=== PATIENT | female | born 1935 | race Caucasian/White ===

== ENCOUNTER 2017-04-23 15:17 | Inpatient (IN) | payer MEDICARE ==
[~2017-04-23] VITALS: Ht 160 cm; Wt 38.1 kg
[~2017-04-23 15:17] MED LIST: PRAV20 PO; TRAACE PO; Vitamin D 3 PO
[2017-04-23 15:50] LABS: Source, Urine Clean Catch
[2017-04-23] MEDS ORDERED: LATANOPROST2.5 ML OP (15:51)
[2017-04-23 15:55] LABS: Bilirubin, Urine Neg (Neg); Blood, Urine 1+ (Neg); Glucose Qualitative, Urine Neg (Neg); Ketones, Urine 2+ (Neg); Leukocyte Esterase, Urine 1+ (Neg); Nitrite, Urine Neg (Neg); Protein, Urine 3+ (Neg); Specific Gravity, Urine 1.015 (1.003-1.022); Urobilinogen, Urine NORM (Normal)
[2017-04-23 16:02] LABS: Appearance, Urine Hazy (Clear); Color, Urine Yellow (P-Yellow); Red Blood Cells, Urine 0-2 /hpf (0-2); Squamous Epithelial Cells Few /hpf (Few)
[2017-04-23 16:03] LABS: Amorphous Mod (0-Heavy); Bacteria Mod /hpf
[2017-04-23 16:17] LABS: BASOPHILS ABSOLUTE AUTO 0.03 K/mm3 (0.00-0.23); BASOPHILS PERCENT AUTO 0 % (0-2); EOSINOPHILS ABSOLUTE AUTO 0.03 K/mm3 (0.00-0.68); EOSINOPHILS PERCENT AUTO 0 % (0-6); Hematocrit 44.1 % (33.0-51.0); Hemoglobin 13.9 g/dL (11.5-16.0); IMMATURE GRAN ABSOLUTE AUTO 0.05 K/mm3 (0.00-0.10); IMMATURE GRAN PERCENT AUTO 0 % (0-1); LYMPHOCYTES ABSOLUTE AUTO 0.94 K/mm3 (0.84-5.20); LYMPHOCYTES PERCENT AUTO 5 % (21-46); MONOCYTES ABSOLUTE AUTO 0.43 K/mm3 (0.16-1.47); MONOCYTES PERCENT AUTO 3 % (4-13); Mean Corpuscular HGB 31.6 pg (26.0-34.0); Mean Corpuscular HGB Conc 31.5 g/dL (31.5-36.5); Mean Corpuscular Volume 100 fL (80-100); Mean Platelet Volume 10.8 fL (9.1-12.4); NEUTROPHILS ABSOLUTE AUTO 15.87 K/mm3 (1.96-9.15); NEUTROPHILS PERCENT AUTO 91 % (41-73); Platelet Count 275 K/mm3 (150-400); RDW Coefficient Variation 13.8 % (11.7-14.2); RDW Standard Deviation 50.7 fL (35.1-46.3); White Blood Cell Count 17.35 K/mm3 (4.00-11.30)
[2017-04-23 16:36] LABS: Alanine Aminotransfer (ALT/SGP 16 U/L (12-78); Albumin, Blood 3.4 g/dL (3.4-5.0); Albumin/Globulin Ratio 0.8 (0.8-1.8); Alk Phos 79 U/L (50-136); Anion Gap 7 mmol/L (6-16); Aspartate Aminotrans (AST/SGOT 21 U/L (12-37); Bilirubin, Total 0.4 mg/dL (0.1-1.0); Blood Urea Nitrogen 9 mg/dL (8-24); Bun/Creatinine Ratio 19.4 (12.0-20.0); CO2, Blood 30 mmol/L (21-32); Calcium, Blood 9.1 mg/dL (8.5-10.1); Chloride, Blood 104 mmol/L (98-108); Creatinine, Blood 0.46 mg/dL (0.40-1.00); Glomerular Filtration Rate >60 (60-); Glucose, Blood 134 mg/dL (70-99); Potassium, Blood 3.5 mmol/L (3.5-5.5); Sodium, Blood 141 mmol/L (136-145); Total Protein, Blood 7.4 g/dL (6.4-8.2)
[2017-04-23 19:08] LABS: Magnesium, Blood 1.9 mg/dL (1.6-2.4)
--- NOTE | 2017-04-23 19:25 | NUR ---
SHIFT SUMMARY PT ARRIVED TO ROOM AT 1846 VIA BED. PT TUCKED IN AND MADE COMFORTABLE. REPORT GIVEN TO EXPEDITER CLERK NURSE WHO WILL ASSUME CARE AT THIS TIME
--- NOTE | 2017-04-24 04:13 | NUR ---
SHIFT SUMMARY PATIENT IS A NEW ADMIT FROM THE ED. SHE IS ALERT AND ORIENTED WITH MILD CONFUSION. SHE DOES NOT KNOW THE YEAR AND WILL REPEAT HERSELF IN CONVERSATION. PIV AND TELE INTACT. TELE REPORTS SR 84 WITH PVC. NS KCL 20 MEQ RUNNING AT 100 mL/HR. PATIENT DENIES PAIN AND N/V. PATIENT REPORTS SHE PICKS AT HER SKIN ON ARMS AND BACK FROM ANXIETY. RED SCABS PRESENT. MEPILEX PUT ON COCCYX FOR PREVENTION. SHE IS A ONE ASSIST TO THE BSC WITH FWW. CALL COLLINS IN REACH. BED IN LOWEST POSITION. WILL CONTINUE TO MONITOR UNTIL DAY SHIFT NURSE ASSUMES CARE.
[2017-04-24 05:19] LABS: BASOPHILS ABSOLUTE AUTO 0.02 K/mm3 (0.00-0.23); BASOPHILS PERCENT AUTO 0 % (0-2); EOSINOPHILS ABSOLUTE AUTO 0.19 K/mm3 (0.00-0.68); EOSINOPHILS PERCENT AUTO 2 % (0-6); Hematocrit 39.2 % (33.0-51.0); Hemoglobin 12.2 g/dL (11.5-16.0); IMMATURE GRAN ABSOLUTE AUTO 0.02 K/mm3 (0.00-0.10); IMMATURE GRAN PERCENT AUTO 0 % (0-1); LYMPHOCYTES ABSOLUTE AUTO 2.58 K/mm3 (0.84-5.20); LYMPHOCYTES PERCENT AUTO 25 % (21-46); MONOCYTES ABSOLUTE AUTO 0.85 K/mm3 (0.16-1.47); MONOCYTES PERCENT AUTO 8 % (4-13); Mean Corpuscular HGB 31.2 pg (26.0-34.0); Mean Corpuscular HGB Conc 31.1 g/dL (31.5-36.5); Mean Corpuscular Volume 100 fL (80-100); Mean Platelet Volume 11.2 fL (9.1-12.4); NEUTROPHILS ABSOLUTE AUTO 6.87 K/mm3 (1.96-9.15); NEUTROPHILS PERCENT AUTO 65 % (41-73); Platelet Count 280 K/mm3 (150-400); RDW Standard Deviation 50.9 fL (35.1-46.3); Red Blood Cell Count 3.91 M/mm3 (3.80-5.20); White Blood Cell Count 10.53 K/mm3 (4.00-11.30)
[2017-04-24 05:44] LABS: Alanine Aminotransfer (ALT/SGP 12 U/L (12-78); Albumin, Blood 2.8 g/dL (3.4-5.0); Albumin/Globulin Ratio 0.8 (0.8-1.8); Alk Phos 63 U/L (50-136); Anion Gap 4 mmol/L (6-16); Aspartate Aminotrans (AST/SGOT 18 U/L (12-37); Bilirubin, Total 0.5 mg/dL (0.1-1.0); Blood Urea Nitrogen 11 mg/dL (8-24); Bun/Creatinine Ratio 20.4 (12.0-20.0); CO2, Blood 29 mmol/L (21-32); Calcium, Blood 8.6 mg/dL (8.5-10.1); Chloride, Blood 110 mmol/L (98-108); Creatinine, Blood 0.54 mg/dL (0.40-1.00); Globulin, Blood 3.6 g/dL (2.2-4.0); Glomerular Filtration Rate >60 (60-); Glucose, Blood 82 mg/dL (70-99); Potassium, Blood 3.9 mmol/L (3.5-5.5); Sodium, Blood 143 mmol/L (136-145); Total Protein, Blood 6.4 g/dL (6.4-8.2)
--- NOTE | 2017-04-24 17:38 | NUR ---
SHIFT SUMMARY PT AXO TO SELF AND FAMILY. PT PLEASANT AND COOPERATIVE. PT STATES THAT SHE IS DOESNT REMEMBER WHY SHE IS HERE AND HOW SHE GOT HERE. NURSE REORIENTED PRN. PT REMAINS 1 ASSIST TO BSC. PT'S IV IS PATENT AND LOCKED AT THIS TIME. MEPILEX ON COCCYX FOR PREVENTION. PT'S SON AND CAREGIVER CALLED MULTIPLE TIMES THROUGHOUT SHIFT FOR UPDATES. PT STATED THAT IT WAS OKAY FOR NURSE TO TALK WITH EACH. PT ALSO STATED THAT SHE NEEDS TO EAT MORE IN THE FUTURE AND ADMITS TO FAILING TO EAT PROPERLY. PT SITTING UP IN BED EATING DINNER AT THIS TIME, CALL LIGHT WITHIN REACH.
--- NOTE | 2017-04-25 04:34 | NUR ---
SHIFT SUMMARY PATIENT HAD NO ACUTE CHANGES OBSERVED DURING THE SHIFT. PATIENT IS ALERT AND ORIENTED TO SELF AND FAMILY AND PLACE, DOES NOT KNOW YEAR AND WILL REPEAT HER SENTENCES. PIV AND TELE REMAIN INTACT. FIELD HEALTH OFFICER REPORTS SINUS 69 W/PAV. PATIENT IS A ONE ASSIST TO THE BSC. PIV IS PATENT AND LOCKED. MEPILEX ON COCCYX FOR PREVENTION. PATIENT DENIES PAIN AND N/V. PATIENT REPORTS PICKING AT HER SCABS AND SKIN FROM ANXIETY. PATIENT COOPERATIVE WITH CARE. CALL COLLINS IS IN REACH. BED IN LOWEST POSITION. WILL CONTINUE TO MONITOR UNTIL DAY SHIFT NURSE [facility].
[2017-04-25 04:55] LABS: BASOPHILS ABSOLUTE AUTO 0.03 K/mm3 (0.00-0.23); BASOPHILS PERCENT AUTO 0 % (0-2); EOSINOPHILS ABSOLUTE AUTO 0.58 K/mm3 (0.00-0.68); EOSINOPHILS PERCENT AUTO 6 % (0-6); Hematocrit 37.5 % (33.0-51.0); IMMATURE GRAN ABSOLUTE AUTO 0.01 K/mm3 (0.00-0.10); IMMATURE GRAN PERCENT AUTO 0 % (0-1); LYMPHOCYTES ABSOLUTE AUTO 2.23 K/mm3 (0.84-5.20); LYMPHOCYTES PERCENT AUTO 23 % (21-46); MONOCYTES ABSOLUTE AUTO 0.77 K/mm3 (0.16-1.47); MONOCYTES PERCENT AUTO 8 % (4-13); Mean Corpuscular HGB 31.1 pg (26.0-34.0); Mean Platelet Volume 10.3 fL (9.1-12.4); NEUTROPHILS ABSOLUTE AUTO 6.27 K/mm3 (1.96-9.15); NEUTROPHILS PERCENT AUTO 63 % (41-73); Platelet Count 250 K/mm3 (150-400); RDW Coefficient Variation 13.8 % (11.7-14.2); RDW Standard Deviation 48.9 fL (35.1-46.3); Red Blood Cell Count 3.86 M/mm3 (3.80-5.20); White Blood Cell Count 9.89 K/mm3 (4.00-11.30)
[2017-04-25 04:57] LABS: Mean Corpuscular Volume 97 fL (80-100)
[2017-04-25 05:15] LABS: Anion Gap 6 mmol/L (6-16); Blood Urea Nitrogen 6 mg/dL (8-24); Bun/Creatinine Ratio 14.5 (12.0-20.0); CO2, Blood 29 mmol/L (21-32); Calcium, Blood 8.3 mg/dL (8.5-10.1); Chloride, Blood 110 mmol/L (98-108); Creatinine, Blood 0.41 mg/dL (0.40-1.00); Glomerular Filtration Rate >60 (60-); Glucose, Blood 91 mg/dL (70-99); Potassium, Blood 3.3 mmol/L (3.5-5.5); Sodium, Blood 145 mmol/L (136-145)
--- NOTE | 2017-04-25 06:33 | NUR ---
CHEST X-RAY PATIENT TRANSPORTED FOR A 2 VIEW CHEST X-RAY IN BED. OUT OF ROOM.
--- NOTE | 2017-04-25 15:26 | NUR ---
PT COMPLAINS OF RIGHT MID THIGH PAIN. STATES SHE HAS THIS PAIN ON OCCASSION AND THAT HEAT AND REST HELPS. SHE ALSO REQUESTS A PAIN PILL, NO ORDER FOR PAIN MEDICINE. PATIENT WAS UNABLE TO KEEP DOWN HER LUNCH, SHE ATE CHICKEN NOODLE SOUP, SOME RICE AND JELLO. CALL PLACED TO HOSPITLAIST, PER INSTRUCTION HER DIET WAS CHANGED TO CLEAR LIQUID, AND ORDERS PLACED FOR THE FOLLOWING: ACETAMINOPHNE 325-650MG PO Q6H AND K PAD
--- NOTE | 2017-04-25 15:42 | NUR ---
Per staff request, I met with Mrs. Gregg to provide emotional and spiritual support. Staff member relayed to me that Darling appears sad and depressed. At the time of my visit, Mr. Gregg smiled easily and took delight in telling me about her three sons. In fact, when I attempted to steer conversation to here and now, she led the conversation back to the time in her life when her boys were small. She appears pleasantly confused, although she could tell me that her spouse is bedbound at home and her desire for more help caring for him. She did not linger long though on that topic. I provided gentle spiritual direction, affirmation of God's love and attention, and prayer. We had an easy rapport. I will remain available.
--- NOTE | 2017-04-25 17:55 | NUR ---
SHIFT SUMMARY NO ACUTE CHANGES THIS SHIFT. PATIENT REMAINS UNABLE TO TOLERATE SOLID FOODS. EMESIS X1. C/O PAIN, RELIEVED WITH HEAT THERAPY AND ACETAMINOPHEN. SHE IS A ONE PERSON STADBY/1 PERSON ASSIST TO THE CHAIR AND BEDSIDE COMMODE. SHE IS ABLE TO MAKE HER NEEDS KNOWN AND USES THE CALL LIGHT APPROPRIATELY, IF SHE CAN FIND IT. SHE IS ORIENTED TO SELF AND PLACE, ALSO FOLLOWS COMMANDS. REPORTS "NEVER FEELING SO BAD IN MY WHOLE LIFE." OT WORKED WITH HER THIS AM AND PT DEFERED TREATMENT UNTIL TOMORROW. WILL CONT TO MONITOR.
[2017-04-26 04:32] LABS: BASOPHILS ABSOLUTE AUTO 0.03 K/mm3 (0.00-0.23); BASOPHILS PERCENT AUTO 0 % (0-2); EOSINOPHILS ABSOLUTE AUTO 0.54 K/mm3 (0.00-0.68); EOSINOPHILS PERCENT AUTO 6 % (0-6); Hematocrit 37.3 % (33.0-51.0); Hemoglobin 11.9 g/dL (11.5-16.0); IMMATURE GRAN ABSOLUTE AUTO 0.02 K/mm3 (0.00-0.10); IMMATURE GRAN PERCENT AUTO 0 % (0-1); LYMPHOCYTES ABSOLUTE AUTO 2.76 K/mm3 (0.84-5.20); LYMPHOCYTES PERCENT AUTO 30 % (21-46); MONOCYTES ABSOLUTE AUTO 0.82 K/mm3 (0.16-1.47); MONOCYTES PERCENT AUTO 9 % (4-13); Mean Corpuscular HGB Conc 31.9 g/dL (31.5-36.5); Mean Corpuscular Volume 97 fL (80-100); Mean Platelet Volume 10.4 fL (9.1-12.4); NEUTROPHILS ABSOLUTE AUTO 4.91 K/mm3 (1.96-9.15); NEUTROPHILS PERCENT AUTO 54 % (41-73); Platelet Count 239 K/mm3 (150-400); RDW Coefficient Variation 13.7 % (11.7-14.2); RDW Standard Deviation 49.1 fL (35.1-46.3); Red Blood Cell Count 3.84 M/mm3 (3.80-5.20); White Blood Cell Count 9.08 K/mm3 (4.00-11.30)
[2017-04-26 04:55] LABS: Anion Gap 6 mmol/L (6-16); Blood Urea Nitrogen 5 mg/dL (8-24); Bun/Creatinine Ratio 10.6 (12.0-20.0); CO2, Blood 29 mmol/L (21-32); Calcium, Blood 8.2 mg/dL (8.5-10.1); Chloride, Blood 110 mmol/L (98-108); Creatinine, Blood 0.47 mg/dL (0.40-1.00); Glomerular Filtration Rate >60 (60-); Glucose, Blood 90 mg/dL (70-99); Potassium, Blood 3.5 mmol/L (3.5-5.5); Sodium, Blood 145 mmol/L (136-145)
--- NOTE | 2017-04-26 07:24 | NUR ---
04/26/17 [id number] shift summary pt remain fragile requires help up to the BR> recieving two iv antibiotics. i think she has nausea when the flagyl is running i gave her zofran. pt has a lot to scratches all over her body
[2017-04-26] MEDS ORDERED: ACET325 PO (11:39)
[2017-04-26] MEDS ORDERED: FAMO20 PO (11:40)
--- NOTE | 2017-04-26 14:29 | NUR ---
DISCHARGE PT DISCHARGED HOME WITH HOOKER LASTER, PT REFUSED HOME HEALTH REFERAL. PLAN TO FOLLOW UP WITH PCP. REVIEWED DISCHARGE SUMMARY AND NEW PRESCRIPTION WITH PT AND HOOKER LASTER, BOTH VERBALIZED UNDERSTANDING. ALL QUESTIONS ANSWERED TO THE BEST OF MY ABILITY, ALL BELONGINGS WITH PT AT TIME OF DISCHARGE.
== END 2017-04-26 13:40 | disposition home or self-care (01) | DRG 392 ==
LOC: ER 15:17 → MEDS 17:58
PROVIDERS: Internal Medicine; Physician Assistant; ADMIT Internal Medicine
DX: K52.9 Noninfective gastroenteritis and colitis, unspecified (principal); E44.0 Moderate protein-calorie malnutrition; E86.0 Dehydration; J44.9 Chronic obstructive pulmonary disease, unspecified; N39.0 Urinary tract infection, site not specified; Z68.1 Body mass index [BMI] 19.9 or less, adult; F03.90 Unspecified dementia, unspecified severity, without behavioral disturbance, psychotic disturbance, mood disturbance, and anxiety; E87.6 Hypokalemia; R26.9 Unspecified abnormalities of gait and mobility; M79.604 Pain in right leg
CPT/HCPCS: 36415; 71020; 74176; 80048; 80053; 81001; 83605; 83690; 83735; 84443; 85025; 87040; 87086; 92610; 93005; 93010; 96365; 96366; 96375; 97162; 97530; 99285; G8978; G8979; G8996; G8997; G8998; J0696; J1650; J1956; J2001; J2405; J3480; J7030; J7050